=== PATIENT | female | born 1995 | race Caucasian/White ===

== ENCOUNTER 2021-09-03 18:39 | Inpatient (IN) | payer SELFPAY ==
--- NOTE | ~2021-09-03 | CT_ITS ---
EXAMINATION: CT abdomen pelvis w con DATE: 09/03/2021 22:16 INDICATION: Right lower quadrant abdominal pain. TECHNIQUE: Computed tomography (CT) of the abdomen and pelvis was performed with 100 mL Omnipaque 350 intravenous contrast. Automated exposure control and iterative reconstruction technique were employe d. The dose-length product was 181.56 mGy-cm. COMPARISON: None. FINDINGS: The visualized portions of the lung bases are clear without pneumonia or pleural effusion. The heart size is normal. No pericardial effusion. The liver and gallbladder are normal. There are mu ltiple low-attenuation lesions in the spleen measuring up to 5 mm, likely granulomatous disease. The pancreas, adrenal glands, and left kidney are normal. There is a striated nephrogram involving right kidney upper pole, consistent with pyelonephritis. There is diffuse bladder wall thickening, consiste nt with cystitis. There are no dilated loops of bowel. The appendix is normal. There are no pathologi christoph enlarged lymph nodes. There is physiologic fluid in the pelvis. The bones are unremarkable. IMPRESSION: 1. Right-sided pyelonephritis. 2. Cystitis. Reviewed, dictated and finalized at location A.
[2021-09-03 19:34] VITALS: BP 116/72; PULSE 112; RESP 18; TEMP 37.4; O2SAT 100
[2021-09-03 19:51] LABS: Basophils Percent Auto 0.1 % (0.2-1.2); Eosinophils Percent Auto 0.1 % (0-4.4); Hematocrit 37.7 % (37.0-47.0); Hemoglobin 12.5 g/dL (12.0-15.0); Immature Granulocyte Absolute 0.07 K/mm3 (0.00-0.031); Immature Granulocyte Percent A 0.5 % (0-0.5); Lymphocytes Absolute Auto 1.88 K/mm3 (0.9-3.2); Lymphocytes Percent Auto 13.1 % (18.3-44.2); Mean Corpuscular HGB Conc 33.2 g/dl (32-36); Mean Corpuscular Hemoglobin 31.3 pg (26-34); Mean Corpuscular Volume 94.5 fl (80-100); Mean Platelet Volume 10.9 fl (7.4-10.4); Monocytes Percent Auto 13.7 % (2.6-8.5); Neutrophils Absolute Auto 10.4 K/mm3 (1.3-6.7); Neutrophils Percent Auto 72.5 % (45.5-73.1); Platelet Count Result 200 k/mm3 (150-375); Red Blood Count 3.99 M/mm3 (4.2-5.4); Red Cell Distribution Width 12.5 % (11.5-14.5); White Blood Count 14.3 K/mm3 (4.5-10.0)
[2021-09-03 19:58] LABS: Alanine Aminotransferase 8 U/L (4-35); Albumin Level 4.2 g/dL (3.5-5.1); Alkaline Phosphatase 58 U/L (38-126); Anion Gap 9 mmol/L (8-16); Aspartate Amino Transferase 17 U/L (14-36); Bilirubin,Total 0.5 mg/dL (0.2-1.3); Blood Urea Nitrogen 8 mg/dL (7-17); Calcium 8.9 mg/dL (8.4-10.2); Carbon Dioxide 21 mmol/L (22-30); Chloride 106 mmol/L (98-107); Estimated CRCL calculation 98 ml/min; Estimated Glomerular Filt Rate > 60; Glucose 112 mg/dL (65-110); Lipase 83 U/L (23-300); Potassium 3.9 mmol/L (3.4-5.0); Sodium 136 mmol/L (137-145)
[2021-09-03 20:10] LABS: Add Urine Microscopic? YES; Appearance Urine Cloudy (Clear); Bilirubin Urine Negative (Negative); Blood Urine 2+ (Negative); Color Urine Yellow (Yellow); Glucose Urine UA Negative (Negative); Ketones Urine Negative (Negative); Leukocyte Esterase Ur 3+ LEU/UL (Negative); Nitrate Urine Negative (Negative); Protein Urine 2+ mg/dL (Negative); RBC Urine >75 /hpf (0-2); Specific Grav Ur 1.011 (1.001-1.035); Squamous Epithelial Cell Urine Few /hpf (Few); Urobilinogen Urine Negative mg/dL (<2.0); WBC Clumps Urine Present /HPF; WBC Urine >75 /hpf
--- NOTE | 2021-09-03 20:48 | ED.ABDPAIN ---
HPI - Abdominal Pain General Chief Complaint: Abdominal Pain Stated Complaint: RLQ pain Time Seen by Provider: 09/03/21 20:37 Source: RN notes reviewed History of Present Illness HPI narrative: Patient presents emergency department from urgent care for abdominal pain. Patient states she has been having right lower quadrant abdominal pain for the past 3 days states pain is progressively worsened described as sharp and stabbing states is been associate with fever up to 103 ?F at home she denies any nausea vomiting or diarrhea states she has been taking ibuprofen at home for the fever with last dose at 4 PM Related Data Allergies Allergy/AdvReac Type Severity Reaction Status Date / Time No Known Allergies Allergy Verified 09/03/21 21:23 Review of Systems Review of Systems: Gen.: Reports fever Eyes: Denies eye pain or visual change ENT: Denies congestion Respiratory: Denies shortness of breath or cough CV: Denies chest pain or palpitations GI: See HPI denies burning, urgency, frequency or hematuria Musculoskeletal: Denies back pain or muscle pain Neuro: Denies numbness, tingling, weakness or focal weakness Skin: Denies rash Except as documented, all other systems reviewed and negative [facility] Past Medical History Medical History (Updated 09/03/21 @ 23:55 by Kris Pena DO) Patient denies significant medical history Social History Social History (Updated 09/03/21 @ 20:49 by Kris Pena DO) Smoking status: Never smoker Exam Narrative: APPEARANCE: No acute distress, nontoxic, resting in bed HEENT: Normocephalic, atraumatic, OMM RESPIRATORY: No respiratory distress, clear to auscultation bilaterally with no rhonchi wheezing or rales CARDIOVASCULAR: RRR s murmur ABDOMINAL: Soft nondistended tender palpation right lower quadrant no tenderness right upper quadrant, left upper quadrant left lower quadrant no rebound or guarding MUSCULOSKELETAl: Moves all extremities. No clubbing, cyanosis or edema. NEURO: Awake and alert. Following commands, speech normal, no focal deficits SKIN:: Warm, dry. Normal Color PSYCHIATRIC: Normal affect/mood Course Course Emergency Course: Patient continues to have abdominal discomfort will admit at this time Dr. Hernandez presentation work-up agrees with admission Discussed with patient and family results of workup and diagnosis. Discussed need for admission. Patient and family understand and agree to current treatment plan Vital Signs Vital signs: Vital Signs Temperature 99.4 F 09/03/21 19:34 Pulse Rate 112 H 09/03/21 19:34 Respiratory Rate 18 09/03/21 19:34 Blood Pressure 116/72 09/03/21 19:34 Pulse Oximetry 100 09/03/21 19:34 Temperature 99.4 F 09/03/21 19:34 Pulse Rate 78 09/03/21 21:31 Respiratory Rate 16 09/03/21 21:31 Blood Pressure 116/70 09/03/21 21:31 Pulse Oximetry 99 09/03/21 21:31 MDM - Abdominal Pain Lab Data Result diagrams: 09/03/21 19:40 09/03/21 19:41 Labs: Lab Results 09/03/21 09/03/21 09/03/21 Range/Units 19:40 19:41 19:50 WBC 14.3 H (4.5-10.0) K/mm3 RBC 3.99 L (4.2-5.4) M/mm3 Hgb 12.5 (12.0-15.0) g/dL Hct 37.7 (37.0-47.0) % MCV 94.5 (80-100) fl MCH 31.3 (26-34) pg MCHC 33.2 (32-36) g/dl RDW 12.5 (11.5-14.5) % Plt Count 200 (150-375) k/mm3 MPV 10.9 H (7.4-10.4) fl Immature Gran % (Auto) 0.5 (0-0.5) % Neut % (Auto) 72.5 (45.5-73.1) % Lymph % (Auto) 13.1 L (18.3-44.2) % [place] % (Auto) 13.7 H (2.6-8.5) % Eos % (Auto) 0.1 (0-4.4) % Baso % (Auto) 0.1 L (0.2-1.2) % Lymph # (Auto) 1.88 (0.9-3.2) K/mm3 [place] # (Auto) 2.0 H (0.1-0.6) K/mm3 Eos # (Auto) 0.0 (0-0.3) K/mm3 Baso # (Auto) 0.0 (0.0-0.1) K/mm3 Abs Immat Gran (auto) 0.07 H (0.00-0.031) K/mm3 Absolute Neuts (auto) 10.4 H (1.3-6.7) K/mm3 Absolute Nucleated RBC 0.0 (0.0-0.012) K/mm3 Nucleated RBC % 0.0 (0.0-0
[2021-09-03 21:26] LABS: Lactic Acid Reflex 0.8 mmol/L (0.7-2.1)
[2021-09-03 21:31] VITALS: BP 116/70; PULSE 78; RESP 16; O2SAT 99
[2021-09-03] MEDS: SODIUM CHLORIDE 0.9% IV 1,000 ML 999 ML IV CONT ×2 (21:31→23:12)
[2021-09-04 00:10] VITALS: BP 114/76; PULSE 100; RESP 20; O2SAT 99
[2021-09-04] MEDS: MORPHINE SULFATE (*CRX) 2 MG/ML INJ IV PUSH (00:19)
[2021-09-04 00:30] VITALS: BP 115/70; PULSE 83; RESP 20; TEMP 36.7; O2SAT 100; BMI 20.6
--- NOTE | 2021-09-04 00:40 | PC.NURSE ---
This patient, Марина Peters, was admitted to 3 [facility] Surg Room 319-01 @ 0030 Patient/family oriented to hospital policies and general routines including ID bracelet, bed and alarms, visiting hours, pain management, procedures, bathroom and other care routines, personal items, smoking policy, room service/diet, and visiting hours. Information on how to activate the Rapid Response Team has been discussed. Patient/Family are encouraged to report perceived risks to care and to ask questions if they do not understand what they are told or what they should do.
[2021-09-04 00:55] VITALS: BMI 21.1
[2021-09-04] MEDS: SODIUM CHLORIDE 0.9% IV 1,000 ML 100 ML IV CONT ×3 (01:19→21:05)
[2021-09-04] MEDS: MORPHINE SULFATE (*CRX) 4 MG/ML INJ 2 MG IV PUSH (03:56)
--- NOTE | 2021-09-04 04:41 | PM.IMHP ---
H&P: HPI History of Present Illness Date/Time: 09/04/21 03:10 Chief Complaint: Abdominal pain and fever Narrative: Previously healthy 25-year-old female who presented to the ER from urgent care with right lower quadrant abdominal pain and fever. Patient reports her pain started approximately 3 days ago. The pain is in the right lower quadrant periumbilical region and will radiate to the right flank at times. The pain is a 6/10 currently and is been as bad as 10/10 with movement. When it 1st started the pain was achy in nature. However the last 24 hours she has developed occasional sharp stabbing pain. It is been accompanied by decreased appetite and a fever. Her fever has been ongoing for 24 hours and is been as high as 103.6?. She has had associated increased urinary urgency and frequency. She denies having any dysuria. She reports that when she does urinate she has only dribbling small amount. She denies any nausea or vomiting. She has had a mild headache over the last several hours. She denies having history of pyelonephritis but usually has a urinary tract infection once a year. She is sexually active but reports that she practices post coital voiding. She denies any chest pain, shortness breath, cough, congestion. 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 She went to urgent care initially and was tested for flu, COVID and strep which were all negative. She had been taking ibuprofen at home. She reported for the 1st 2 days ibuprofen seems to help with her pain. On final day the pain was so severe it did not seem to help. She persistently had a fever despite the ibuprofen. Review of Systems Review of Systems: 12 systems were reviewed with pertinent positives and negatives per HPI. Except as documented in the HPI, all other systems were reviewed and are negative. [facility] Past Medical History Medical History (Updated 09/04/21 @ 05:11 by Yarely Hernandez DO) Patient denies significant medical history Surgical History Surgical History (Updated 09/04/21 @ 05:04 by Yarely Hernandez DO) No significant past surgical history Family History Family History (Updated 09/04/21 @ 05:06 by Yarely Hernandez DO) Mother Patient's mother is in good health Father Patient's father is in good health Social History Social History (Updated 09/04/21 @ 05:07 by Yarely Hernandez DO) Social History: 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 She drinks alcohol about once a month but when she does drink she drinks to get drunk. She denies any illicit substance use or tobacco use. Smoking status: Never smoker Alcohol intake: current Substance use: never Spiritual care concerns: No Meds Home Medications and Allergies Home Medications Medication Instructions Recorded Confirmed Type No Home Medications 09/04/21 09/04/21 History Allergies Allergy/AdvReac Type Severity Reaction Status Date / Time No Known Allergies Allergy Verified 09/04/21 01:13 Vital Signs Vital Signs - 24 hr 09/03/21 19:34 09/03/21 21:31 09/04/21 00:10 Temperature 99.4 F Pulse Rate 112 H 78 100 Respiratory Rate 18 16 20 Blood Pressure 116/72 116/70 114/76 Pulse Oximetry 100 99 99 09/04/21 00:30 Temperature 98.0 F Pulse Rate 83 Respiratory Rate 20 Blood Pressure 115/70 Pulse Oximetry 100 Exam Narrative: PHYSICAL EXAM: WEIGHT 52.4 kg BMI 21.1 General: Mildly ill-appearing, well-developed well-nourished HEENT: Mucous membranes are tacky however oral pharyngeal erythema, no scleral icterus, pupils are equal reactive Respiratory: Clear to auscultation bilaterally, no increased work of breathing Cardiovascular: Regular rate, regular rhythm, no murmurs, 2+ bilateral radial pedal pulses Gastrointestinal: Soft, tender in the right periumbilical region, CVA tenderness to percussion, normoactive bowel sounds, nondistended Skin: Mild pallor, non jaundice Musculoskeletal: No clubbing, cyanosis or edema Neurolo
[2021-09-04] MEDS: HYDROcodone/acetaminophen (*CRX) 5-325 MG TABLET 1 TAB PO ×3 (05:49→21:01)
[2021-09-04 06:00] VITALS: BP 110/61; PULSE 88; RESP 20; TEMP 36.9; O2SAT 100
[2021-09-04 06:46] LABS: Basophils Percent Auto 0.1 % (0.2-1.2); Eosinophils Absolute Auto 0.1 K/mm3 (0-0.3); Eosinophils Percent Auto 0.6 % (0-4.4); Hematocrit 36.4 % (37.0-47.0); Hemoglobin 11.6 g/dL (12.0-15.0); Immature Granulocyte Absolute 0.04 K/mm3 (0.00-0.031); Immature Granulocyte Percent A 0.4 % (0-0.5); Lymphocytes Percent Auto 18.3 % (18.3-44.2); Mean Corpuscular HGB Conc 31.9 g/dl (32-36); Mean Corpuscular Hemoglobin 31.2 pg (26-34); Mean Corpuscular Volume 97.8 fl (80-100); Mean Platelet Volume 11.1 fl (7.4-10.4); Monocytes Absolute Auto 1.2 K/mm3 (0.1-0.6); Neutrophils Absolute Auto 6.7 K/mm3 (1.3-6.7); Neutrophils Percent Auto 68.6 % (45.5-73.1); Platelet Count Result 160 k/mm3 (150-375); Red Blood Count 3.72 M/mm3 (4.2-5.4); Red Cell Distribution Width 12.7 % (11.5-14.5); White Blood Count 9.8 K/mm3 (4.5-10.0)
[2021-09-04 06:52] LABS: Anion Gap 7 mmol/L (8-16); Blood Urea Nitrogen 5 mg/dL (7-17); Calcium 8.2 mg/dL (8.4-10.2); Carbon Dioxide 25 mmol/L (22-30); Chloride 110 mmol/L (98-107); Estimated CRCL calculation 115 ml/min; Estimated Glomerular Filt Rate > 60; Glucose 119 mg/dL (65-110); Potassium 3.4 mmol/L (3.4-5.0); Sodium 142 mmol/L (137-145)
[2021-09-04] MEDS: IBUPROFEN 600 MG TABLET PO ×2 (08:48→17:44)
--- NOTE | 2021-09-04 12:08 | PM.IMPN ---
Progress Note: A&P Assessment and Plan (1) Pyelonephritis of right kidney: Code(s): N12 - Tubulo-interstitial nephritis, not specified as acute or chronic Status: Acute Assessment and Plan: Presented with acute right flank pain fever. CT abdomen/pelvis showed right-sided pyelonephritis and cystitis Continue IV Ceftriaxone Urine cultures pending, await results and tailor antibiotics accordingly Supportive care. Analgesics and antiemetics available as needed (2) Sepsis: Qualifiers: Sepsis acute organ dysfunction status: without acute organ dysfunction Sepsis type: sepsis due to unspecified organism Qualified Code(s): A41.9 - Sepsis, unspecified organism Code(s): A41.9 - Sepsis, unspecified organism Status: Acute Assessment and Plan: Septic presentation fever, leukocytosis tachycardia. Source of infection is acute right pyelonephritis. Blood cultures pending Treatment as above Sepsis resolved. She is afebrile, leukocytosis and tachycardia have resolved Will discontinue IV fluids she has been adequately rehydrated and is tolerating p.o. intake Subjective Date/time seen: 09/04/21 12:08 Interval history: Date of service: 09/04/2021 Марина Peters is a previously healthy 25 year old female who is seen in follow-up for right-sided pyelonephritis. She is feeling a little bit better. She continues to endorse right flank pain that she rates as 5.5/10 with all movement and with deep breaths. She describes it as a sharp, stabbing type pain. She denies fever, chills, nausea vomiting, dizziness lightheadedness. She does have a poor appetite. She denies breakfast this morning. She dysuria hematuria, urgency or frequency. Denies diarrhea. She had a headache this morning has resolved. Denies shortness breath, cough, or chest pain. She has no additional concerns at this time. Review of Systems Review of Systems: All systems reviewed & are unremarkable except as noted in HPI and below Exam Narrative: Ms. Peters is a well-nourished, well-appearing 25-year-old female who is sitting cross legged in bed. She appears comfortable and is in NARD. Neuro: awake, alert and oriented x4, speech clear, no focal neuro deficits noted HEENMT: normocephalic, atraumatic, EOMI, sclerae anicteric, moist oral mucosa Neck: supple, no lymphadenopathy Respiratory: clear to auscultation bilaterally, nonlabored breathing Cardio: regular rate, regular rhythm with S1-S2 Abdomen: nondistended, normoactive bowel sounds, soft, nontender to palpation : no CVA tenderness, right flank equisitely tender to palpation, left flank nontender. Extremities: no edema, erythema, or tenderness to palpation, DP pulses 2+ bilaterally Skin: no rashes or lesions, warm and dry Psych: appropriate mood and affect, judgment and insight intact Objective Data Vital Signs Vital Signs: Vital Signs - 24 hr 09/03/21 19:34 09/03/21 21:31 09/04/21 00:10 Temperature 99.4 F Pulse Rate 112 H 78 100 Respiratory Rate 18 16 20 Blood Pressure 116/72 116/70 114/76 Pulse Oximetry 100 99 99 09/04/21 00:30 09/04/21 06:00 Temperature 98.0 F 98.5 F Pulse Rate 83 88 Respiratory Rate 20 20 Blood Pressure 115/70 110/61 Pulse Oximetry 100 100 Intake/Output Intake/Output: Intake & Output 09/01/21 09/02/21 09/03/21 09/04/21 23:59 23:59 23:59 23:59 Intake Total 1100 2490 Balance 1100 2490 Meds/Results Medications: Active Medications Generic Name Dose Route Start Last Admin Trade Name Freq PRN Reason Stop Dose Admin Hydrocodone Bitart/Acetaminophen 1 tab 09/04/21 05:12 09/04/21 11:45 Hydrocodone/Acetaminophen (*Crx) 5-325 Mg Tablet PO 1 tab Q6H PRN Administration Pain Rated 4-6 Ceftriaxone Sodium/Dextrose 1 gm in 50 mls @ 100 mls/hr 09/04/21 22:00 Rocephin 1 Gm/D5w 50 Ml IVPB Q24H JOSEPHINE Sodium Chloride 1,000 mls @ 100 mls/hr 09/03/21 23:55 09/04/21 11:44 Normal
[2021-09-04 14:00] VITALS: BP 104/52; PULSE 72; RESP 16; TEMP 36.4; O2SAT 100
[2021-09-04 20:30] VITALS: O2SAT 100
[2021-09-04 21:56] VITALS: BP 104/63; PULSE 82; RESP 20; TEMP 37.2; O2SAT 100
[2021-09-05] MEDS: HYDROcodone/acetaminophen (*CRX) 5-325 MG TABLET 1 TAB PO ×4 (02:51→20:44)
[2021-09-05 06:00] VITALS: BP 121/76; PULSE 97; RESP 20; TEMP 37.6; O2SAT 100
[2021-09-05] MEDS: MORPHINE SULFATE (*CRX) 4 MG/ML INJ 2 MG IV PUSH (06:17)
[2021-09-05 06:24] LABS: Hematocrit 34.2 % (37.0-47.0); Hemoglobin 11.1 g/dL (12.0-15.0); Mean Corpuscular HGB Conc 32.5 g/dl (32-36); Mean Corpuscular Hemoglobin 31.4 pg (26-34); Mean Corpuscular Volume 96.9 fl (80-100); Mean Platelet Volume 10.9 fl (7.4-10.4); Platelet Count Result 149 k/mm3 (150-375); Red Blood Count 3.53 M/mm3 (4.2-5.4); Red Cell Distribution Width 12.8 % (11.5-14.5); White Blood Count 9.5 K/mm3 (4.5-10.0)
[2021-09-05] MEDS: IBUPROFEN 600 MG TABLET PO ×2 (06:30→12:07)
[2021-09-05 06:49] LABS: Anion Gap 7 mmol/L (8-16); Blood Urea Nitrogen 2 mg/dL (7-17); Calcium 8.4 mg/dL (8.4-10.2); Carbon Dioxide 26 mmol/L (22-30); Chloride 105 mmol/L (98-107); Estimated CRCL calculation 115 ml/min; Estimated Glomerular Filt Rate > 60; Glucose 91 mg/dL (65-110); Potassium 3.8 mmol/L (3.4-5.0); Sodium 138 mmol/L (137-145)
--- NOTE | 2021-09-05 10:03 | PM.IMPN ---
Progress Note: A&P Assessment and Plan (1) Pyelonephritis of right kidney: Code(s): N12 - Tubulo-interstitial nephritis, not specified as acute or chronic Status: Acute Assessment and Plan: Presented with acute right flank pain and fever. CT abdomen/pelvis showed right-sided pyelonephritis and cystitis Continue IV Ceftriaxone Urine cultures with growth of >100k E coli. Susceptibility reports pending. Tailor antibiotics accordingly Supportive care. Analgesics and antiemetics available as needed (2) Sepsis: Qualifiers: Sepsis acute organ dysfunction status: without acute organ dysfunction Sepsis type: sepsis due to unspecified organism Qualified Code(s): A41.9 - Sepsis, unspecified organism Code(s): A41.9 - Sepsis, unspecified organism Status: Acute Assessment and Plan: Septic on presentation with fever, leukocytosis tachycardia. Source of infection is acute right pyelonephritis. Blood cultures pending; negative today Treatment as above Low-grade fever 99.7 this morning. Leukocytosis and tachycardia resolved Subjective Date/time seen: 09/05/21 10:03 Interval history: Date of service: 09/05/2021 Марина Peters is a previously healthy 25 year old female who is seen in follow-up for right-sided pyelonephritis. She is feeling about the same today. She is feeling a little bit better but is still having sharp pains in the right flank. This morning her pain was 5/10 but has improved to 2.5/10 after pain medication. She denies urinary symptoms. Denies vaginal discharge, pelvic pain. She endorsed chills this morning and had a fever. No nausea or vomiting. Still with poor appetite. No shortness breath, cough, or chest pain. No dizziness or lightheadedness. She has been able to get up and walk around to the bathroom without difficulty. Review of Systems Review of Systems: All systems reviewed & are unremarkable except as noted in HPI and below Exam Narrative: Ms. Peters is a well-nourished, well-appearing 25-year-old female who is sitting cross legged in bed. She appears comfortable and is in NARD. Neuro: awake, alert and oriented x4, speech clear, no focal neuro deficits noted HEENMT: normocephalic, atraumatic, EOMI, sclerae anicteric, moist oral mucosa Neck: supple, no lymphadenopathy Respiratory: clear to auscultation bilaterally, nonlabored breathing Cardio: regular rate, regular rhythm with S1-S2 Abdomen: nondistended, normoactive bowel sounds, soft, nontender to palpation : no CVA tenderness, right flank tender to palpation, left flank nontender. Extremities: no edema, erythema, or tenderness to palpation, DP pulses 2+ bilaterally Skin: no rashes or lesions, warm and dry Psych: appropriate mood and affect, judgment and insight intact Objective Data Vital Signs Vital Signs: Vital Signs - 24 hr 09/04/21 14:00 09/04/21 20:30 09/04/21 21:56 Temperature 97.6 F 98.9 F Pulse Rate 72 82 Respiratory Rate 16 20 Blood Pressure 104/52 L 104/63 Pulse Oximetry 100 100 100 09/05/21 06:00 Temperature 99.7 F H Pulse Rate 97 Respiratory Rate 20 Blood Pressure 121/76 Pulse Oximetry 100 Intake/Output Intake/Output: Intake & Output 09/02/21 09/03/21 09/04/21 09/05/21 23:59 23:59 23:59 23:59 Intake Total 1100 4220 300 Balance 1100 4220 300 Meds/Results Medications: Active Medications Generic Name Dose Route Start Last Admin Trade Name Freq PRN Reason Stop Dose Admin Hydrocodone Bitart/Acetaminophen 1 tab 09/04/21 05:12 09/05/21 08:31 Hydrocodone/Acetaminophen (*Crx) 5-325 Mg Tablet PO 1 tab Q6H PRN Administration Pain Rated 4-6 Ceftriaxone Sodium/Dextrose 1 gm in 50 mls @ 100 mls/hr 09/04/21 22:00 09/04/21 23:24 Rocephin 1 Gm/D5w 50 Ml IVPB 100 mls/hr Q24H JOSEPHINE Infusion Ibuprofen 600 mg 09/04/21 05:12 09/05/21 06:30 Ibuprofen 600 Mg Tablet PO 600 mg Q6H PRN Administration Pain R
[2021-09-05 14:00] VITALS: BP 109/60; PULSE 94; RESP 14; TEMP 37.2; O2SAT 98
[2021-09-05 22:00] VITALS: BP 113/70; PULSE 84; RESP 20; TEMP 37.1; O2SAT 98
[2021-09-06] MEDS: HYDROcodone/acetaminophen (*CRX) 5-325 MG TABLET 1 TAB PO ×3 (00:49→11:50)
[2021-09-06] MEDS: IBUPROFEN 600 MG TABLET PO (02:46)
[2021-09-06 06:00] VITALS: BP 100/60; PULSE 66; RESP 20; TEMP 36.7; O2SAT 99
[2021-09-06 06:44] LABS: Hematocrit 33.9 % (37.0-47.0); Hemoglobin 10.9 g/dL (12.0-15.0); Mean Corpuscular HGB Conc 32.2 g/dl (32-36); Mean Corpuscular Hemoglobin 30.5 pg (26-34); Mean Platelet Volume 10.7 fl (7.4-10.4); Platelet Count Result 199 k/mm3 (150-375); Red Blood Count 3.57 M/mm3 (4.2-5.4); Red Cell Distribution Width 12.6 % (11.5-14.5); White Blood Count 7.8 K/mm3 (4.5-10.0)
[2021-09-06 07:01] LABS: Anion Gap 7 mmol/L (8-16); Blood Urea Nitrogen 5 mg/dL (7-17); Calcium 8.7 mg/dL (8.4-10.2); Carbon Dioxide 29 mmol/L (22-30); Chloride 104 mmol/L (98-107); Estimated CRCL calculation 115 ml/min; Estimated Glomerular Filt Rate > 60; Glucose 85 mg/dL (65-110); Potassium 3.7 mmol/L (3.4-5.0); Sodium 140 mmol/L (137-145)
--- NOTE | 2021-09-06 14:48 | PM.DS ---
DS: Admitting Diagnosis Discharge Date 09/06/2021 Admitting Diagnosis Pyelonephritis DS: Discharge Diagnosis Discharge Diagnosis (1) Pyelonephritis of right kidney: Code(s): N12 - Tubulo-interstitial nephritis, not specified as acute or chronic Status: Acute Assessment and Plan: Presented with acute right flank pain and fever. CT abdomen/pelvis showed right-sided pyelonephritis and cystitis Received IV ceftriaxone during hospitalization Urine cultures with growth of >100k E coli. Supportive care provided including analgesics and antiemetics She will continue p.o. Augmentin for 10 days as an outpatient. Probiotic prescribed while taking antibiotics (2) Sepsis: Qualifiers: Sepsis acute organ dysfunction status: without acute organ dysfunction Sepsis type: sepsis due to unspecified organism Qualified Code(s): A41.9 - Sepsis, unspecified organism Code(s): A41.9 - Sepsis, unspecified organism Status: Acute Assessment and Plan: Resolved. Septic on presentation with fever, leukocytosis tachycardia. Source of infection was acute right pyelonephritis. Leukocytosis and tachycardia resolved. She remained afebrile >24 hours DS: Summary Hospital Course Hospital Course: Date of admission: 09/03/2021 Date of discharge: 09/06/2021 Марина Peters is a healthy 25-year-old female who presented to the emergency department on 09/03/2021 with complaints of right-sided abdominal pain ongoing for 3 days as well as fever up to 103.0?. On presentation to the emergency department, she was tachycardic with additional vital signs stable, WBC 14.3, additional CBC and BMP unremarkable, UA grossly abnormal, and CT abdomen/pelvis showed right-sided pyelonephritis and cystitis. She was admitted to the hospitalist service for further evaluation and management. Please see above for further details. She was treated with IV antibiotics and had symptomatic improvement. She was feeling much better and her pain had improved. She requested discharge home. Given her overall improvement, she was determined to no longer require inpatient care and was felt to be stable for discharge. We discussed worrisome signs and symptoms for which to return and she was educated on her medications. She was discharged in hemodynamically stable condition on 09/06/2021. Status at Discharge Functional status at discharge: independent ambulation Overall status at discharge: patient is back to baseline Time Spent with Patient Time attestation: Total time spent providing and/or coordinating discharge services: 45 minutes Time spent: Greater than 30 minutes Exam Narrative: Ms. Peters is a well-nourished, well-appearing 25-year-old female who is sitting up in bed. She appears comfortable and is in NARD. Neuro: awake, alert and oriented x4, speech clear, no focal neuro deficits noted HEENMT: normocephalic, atraumatic, EOMI, sclerae anicteric, moist oral mucosa Neck: supple, no lymphadenopathy Respiratory: clear to auscultation bilaterally, nonlabored breathing Cardio: regular rate, regular rhythm with S1-S2 Abdomen: nondistended, normoactive bowel sounds, soft, nontender to palpation : no CVA tenderness, right flank slightly tender to palpation, left flank nontender. Extremities: no edema, erythema, or tenderness to palpation, DP pulses 2+ bilaterally Skin: no rashes or lesions, warm and dry Psych: appropriate mood and affect, judgment and insight intact DS: Data Data Completed and Pending Labs on day of discharge: Labs from last 24 hours 09/06/21 09/06/21 06:14 06:14 WBC 7.8 RBC 3.57 L Hgb 10.9 L Hct 33.9 L MCV 95.0 MCH 30.5 MCHC 32.2 RDW 12.6 Plt Count 199 MPV 10.7 H Sodium 140 Potassium 3.7 Chloride 104 Carbon Dioxide 29 Anion Gap 7 L BUN 5 L Creatinine 0.50 L Estim Creat Clear Calc 115 Estimated GFR > 60 Glucose 85 Calcium 8.7 Preliminary
[2021-09-06 15:07] VITALS: BP 103/55; PULSE 70; RESP 20; TEMP 37.1; O2SAT 98
== END 2021-09-06 16:00 | disposition home or self-care (01) | DRG 720 ==
LOC: ANHED 23:55 → ANH3MEDSUR 09-04 00:15
PROVIDERS: Physician Assistant; Admitting Provider Internal Medicine; Emergency Provider Emergency Medicine; Visit Provider Internal Medicine
DX: A41.9 Sepsis, unspecified organism (principal); N10 Acute pyelonephritis; Z28.21 Immunization not carried out because of patient refusal
CPT/HCPCS: 36415; 74177; 80048; 80053; 81001; 81025; 83605; 83690; 85025; 85027; 87040; 87077; 87086; 87088; 87186; 96361; 96365; 96367; 96374; 96376; 99285; A9270; G0378; G0379; J0131; J0696; J2270; J7030; Q9967

== ENCOUNTER → 2021-09-18 12:53 | Emergency (ER) | payer SELFPAY ==
--- NOTE | ~2021-09-18 | CT_ITS ---
EXAMINATION: CT abdomen pelvis w con DATE: 09/18/2021 14:09 INDICATION: Right lower quadrant abdominal pain. TECHNIQUE: Computed tomography (CT) of the abdomen and pelvis was performed with 100 mL Omnipaque 350 intravenous contrast. Automated exposure control and iterative reconstruction technique were employe d. The dose-length product was 191.23 mGy-cm. COMPARISON: CT abdomen and pelvis 09/03/2021 FINDINGS: The visualized portions of the lung bases are clear without pneumonia or pleural effusion. The heart size is normal. No pericardial effusion. The liver and gallbladder are normal. Again seen a re multiple low-attenuation lesions in the spleen measuring up to 6 mm, likely granulomatous disease. The pancreas, adrenal glands, and left kidney are normal. There is a striated nephrogram involving r ight kidney upper pole with improvement, consistent with pyelonephritis. There are no dilated loops o f bowel. The appendix is normal. There are no pathologically enlarged lymph nodes. There is physiolog ic fluid in the pelvis. There is mild lumbar spondylosis. IMPRESSION: 1. Pyelonephritis involving right kidney upper pole with interval improvement. Reviewed, dictated and finalized at location A.
--- NOTE | ~2021-09-18 | US_ITS ---
EXAMINATION: US pelvic complete w TV DATE: 09/18/2021 15:01 INDICATION: Pelvic pain. Low abdominal pain. TECHNIQUE: Multiple transabdominal and transvaginal sonographic images of the pelvis were obtained. COMPARISON: CT abdomen and pelvis 09/18/2021 FINDINGS: TRANSABDOMINAL ULTRASOUND: The uterus measures 8.0 x 4.2 x 5.8 cm. There is trace free fluid in the pelvis. TRANSVAGINAL ULTRASOUND: The endometrial complex measures 16 mm in thickness. The right ovary measures 2.7 x 1.4 x 1.7 cm. The left ovary measures 3.1 x 2.7 x 2.7 cm. There is a 2.1 cm hemorrhagic cyst in left ovary. There is n ormal vascular flow in the ovaries. IMPRESSION: 1. 2.1 cm hemorrhagic cyst in left ovary. Reviewed, dictated and finalized at location A.
[2021-09-18 13:01] VITALS: BP 129/70; PULSE 86; RESP 16; TEMP 37; O2SAT 99
--- NOTE | 2021-09-18 13:16 | ED.ABDPAIN ---
HPI - Abdominal Pain General Chief Complaint: Abdominal Pain Stated Complaint: right sided abdominal pain Time Seen by Provider: 09/18/21 12:58 Source: patient Mode of arrival: ambulatory Limitations: no limitations History of Present Illness HPI narrative: This is a 25 year old female that presents to the ER for right sided abdominal pain present over the last couple of weeks. Reports the pain is sharp in nature and intermittent. The pain is now also in her left lower quadrant which prompted her to be seen. She was recently admitted to the hospital for pyelonephritis on the right. She recently finished her p.o. antibiotics without relief in her symptoms. Denies fever, vomiting, dysuria, hematuria. Related Data Allergies Allergy/AdvReac Type Severity Reaction Status Date / Time No Known Allergies Allergy Verified 09/18/21 13:22 Review of Systems Review of Systems: CONSTITUTIONAL: Denies fever GASTROINTESTINAL: Reports abdominal pain. Denies nausea, vomiting, or diarrhea. GENITOURINARY: Denies dysuria or hematuria. All systems reviewed & are unremarkable except as noted in HPI and below PMFSH Past Medical History Medical History (Updated 09/18/21 @ 15:39 by Feli Hess PA-C) Patient denies significant medical history Surgical History Surgical History (Updated 09/04/21 @ 05:04 by Yarely Hernandez DO) No significant past surgical history Family History Family History (Updated 09/04/21 @ 05:06 by Yarely Hernandez DO) Mother Patient's mother is in good health Father Patient's father is in good health Social History Social History (Updated 09/04/21 @ 05:07 by Yarely Hernandez DO) Social History: 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 She drinks alcohol about once a month but when she does drink she drinks to get drunk. She denies any illicit substance use or tobacco use. Smoking status: Never smoker Alcohol intake: current Substance use: never Spiritual care concerns: No Exam Narrative: GENERAL: Well-appearing, well-nourished, and in no acute distress. HEAD: Normocephalic, atraumatic. EYES: EOMI. CHEST: Clear to auscultation. No respiratory distress. No wheezes rales or rhonchi HEART: Regular rate and rhythm. No murmur heard. Normal peripheral pulses. ABDOMEN: Soft, nondistended, normal active bowel sounds. Tender to palpation throughout the lower abdomen, without guarding. No CVA tenderness EXTREMITIES: Normal range of motion. No edema. SKIN: Warm, dry, no rash. NEURO: No focal deficits. Alert and oriented x3. PSYCH: Normal mood and affect Course Vital Signs Vital signs: Vital Signs Temperature 98.6 F 09/18/21 13:01 Pulse Rate 86 09/18/21 13:01 Respiratory Rate 16 09/18/21 13:01 Blood Pressure 129/70 09/18/21 13:01 Pulse Oximetry 99 09/18/21 13:01 Temperature 98.6 F 09/18/21 13:01 Pulse Rate 103 H 09/18/21 13:17 Respiratory Rate 18 09/18/21 13:17 Blood Pressure 114/76 09/18/21 13:17 Pulse Oximetry 100 09/18/21 13:17 MDM - Abdominal Pain MDM Narrative Medical decision making narrative: Patient presents to the emergency department for continued right lower quadrant abdominal pain. Was recently admitted to the hospital for right-sided pyelonephritis. She is afebrile and nontoxic-appearing. Her vitals are stable. CBC and metabolic panel without concerning findings. Lipase is normal. UA does look normal today as well. Bedside test is negative. CT scan of the abdomen and pelvis does show continued pyelonephritis in the right kidney with improvement. Pelvic ultrasound shows a 2.1 cm hemorrhagic cyst in the left ovary. Normal vascular flow to the ovaries. With patient's continued pain will extend oral antibiotics and change to a different antibiotic with a better M.I.C. 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 Patient is stable and felt appropriate for fu
[2021-09-18 13:17] VITALS: BP 114/76; PULSE 103; RESP 18; O2SAT 100
[2021-09-18 13:40] LABS: Add Urine Microscopic? NO; Appearance Urine Clear (Clear); Bilirubin Urine Negative (Negative); Blood Urine Negative (Negative); Color Urine Yellow (Yellow); Glucose Urine UA Negative (Negative); Ketones Urine Negative (Negative); Leukocyte Esterase Ur Negative LEU/UL (Negative); Nitrate Urine Negative (Negative); Protein Urine Negative (Negative); Specific Grav Ur 1.015 (1.001-1.035); Urobilinogen Urine Negative mg/dL (<2.0)
[2021-09-18 13:41] LABS: Basophils Percent Auto 0.4 % (0.2-1.2); Eosinophils Absolute Auto 0.1 K/mm3 (0-0.3); Eosinophils Percent Auto 1.6 % (0-4.4); Hemoglobin 13.1 g/dL (12.0-15.0); Immature Granulocyte Absolute 0.02 K/mm3 (0.00-0.031); Immature Granulocyte Percent A 0.3 % (0-0.5); Lymphocytes Absolute Auto 2.08 K/mm3 (0.9-3.2); Lymphocytes Percent Auto 27.6 % (18.3-44.2); Mean Corpuscular HGB Conc 32.8 g/dl (32-36); Mean Corpuscular Volume 94.8 fl (80-100); Mean Platelet Volume 10.9 fl (7.4-10.4); Monocytes Absolute Auto 0.5 K/mm3 (0.1-0.6); Monocytes Percent Auto 6.1 % (2.6-8.5); Neutrophils Absolute Auto 4.8 K/mm3 (1.3-6.7); Platelet Count Result 239 k/mm3 (150-375); Red Blood Count 4.22 M/mm3 (4.2-5.4); Red Cell Distribution Width 12.6 % (11.5-14.5); White Blood Count 7.5 K/mm3 (4.5-10.0)
[2021-09-18] MEDS: ONDANSETRON INJ 4 MG/2 ML VIAL IV PUSH (13:41)
[2021-09-18] MEDS: MORPHINE SULFATE (*CRX) 4 MG/ML INJ IV PUSH (13:41)
[2021-09-18 13:49] LABS: Alanine Aminotransferase 9 U/L (4-35); Albumin Level 4.5 g/dL (3.5-5.1); Alkaline Phosphatase 68 U/L (38-126); Anion Gap 9 mmol/L (8-16); Aspartate Amino Transferase 23 U/L (14-36); Bilirubin,Total 0.6 mg/dL (0.2-1.3); Blood Urea Nitrogen 10 mg/dL (7-17); Calcium 9.5 mg/dL (8.4-10.2); Carbon Dioxide 25 mmol/L (22-30); Chloride 105 mmol/L (98-107); Estimated CRCL calculation 94 ml/min; Estimated Glomerular Filt Rate > 60; Glucose 90 mg/dL (65-110); Lipase 105 U/L (23-300); Potassium 3.9 mmol/L (3.4-5.0); Sodium 139 mmol/L (137-145)
--- NOTE | 2021-09-18 14:37 | PC.NURSE ---
Pt off floor for US
[2021-09-18 16:40] VITALS: BP 114/76; PULSE 85; RESP 18; TEMP 37.1; O2SAT 98
== END | disposition home or self-care (01) ==
PROVIDERS: Physician Assistant; Emergency Provider Family Medicine
DX: N12 Tubulo-interstitial nephritis, not specified as acute or chronic (principal); N83.202 Unspecified ovarian cyst, left side
CPT/HCPCS: 36415; 74177; 76830; 76856; 80053; 81003; 81025; 83690; 85025; 96374; 96375; 99284; J0131; J2270; J2405; Q9967

== ENCOUNTER 2022-04-02 15:45 | Emergency (ER) | payer OTHER, SELFPAY ==
--- NOTE | ~2022-04-02 | XR_ITS ---
XR foot LT min 3V DATE: 04/02/2022 16:08 INDICATION: Left fifth toe stubbed TECHNIQUE: 4 views COMPARISON: None FINDINGS: No fracture, dislocation, periosteal reaction or bone destruction. IMPRESSION: Negative Reviewed, dictated and finalized at location B. IMPRESSION: Negative
[2022-04-02 15:56] VITALS: BP 100/73; PULSE 72; RESP 16; TEMP 36.7; O2SAT 100
--- NOTE | 2022-04-02 15:59 | ED.LOWEXIN ---
HPI - Extremity Injury (Lower) General Chief Complaint: Extremity Injury, Lower Stated Complaint: work injury Time Seen by Provider: 04/02/22 16:10 Source: patient and RN notes reviewed Mode of arrival: ambulatory Limitations: no limitations History of Present Illness HPI Narrative: 26 old female presents concern for pain to the fifth digit of her left foot. Reports at work today she stubbed the toe on a crib. Reports pain, swelling. Reports worsening pain with walking. She denies intervention. She denies open skin, lacerations, abrasions. MD complaint: foot injury Related Data Allergies Allergy/AdvReac Type Severity Reaction Status Date / Time No Known Allergies Allergy Verified 09/18/21 13:22 Review of Systems Review of Systems: CONSTITUTIONAL: Denies malaise, chills, sweats, or fever. SKIN: Denies rash or itching, open skin, laceration, abrasion, redness, warmth MUSCULOSKELETAL: Reports pain and swelling in the fifth digit of left foot NEUROLOGIC: Denies numbness, weakness All systems reviewed & are unremarkable except as noted in HPI and below PMFSH Past Medical History Medical History (Updated 04/02/22 @ 16:29 by Emma Dunlap NP) Patient denies significant medical history Surgical History Surgical History (Updated 09/04/21 @ 05:04 by Yarely Hernandez DO) No significant past surgical history Family History Family History (Updated 09/04/21 @ 05:06 by Yarely Hernandez DO) Mother Patient's mother is in good health Father Patient's father is in good health Social History Social History (Updated 09/04/21 @ 05:07 by Yarely Hernandez DO) Social History: 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 She drinks alcohol about once a month but when she does drink she drinks to get drunk. She denies any illicit substance use or tobacco use. Smoking status: Never smoker Alcohol intake: current Substance use: never Spiritual care concerns: No Comments At time of signature, agree with nursing past medical, surgical, social and family history. There is no relevant family history pertinent to the presenting complaint Exam Narrative: GENERAL: Well-appearing, well-nourished, and in no acute distress. HEAD: Normocephalic, atraumatic. EYES: PERRLA, conjunctivae clear NECK: Supple. CHEST: Speaks in full sentences. No respiratory distress. HEART: Regular rate and rhythm. Normal and equal peripheral pulses. EXTREMITIES: Foot and all digits have normal strength and sensation, grossly normal range of motion. Mild fifth digit edema and erythema, no ecchymosis. 5/5 strength with digit flexion and extension. Normal sensation with sensitivity to light touch and pain. No point tenderness. No open wounds, no skin tenting, no devitalized tissue or atrophy, no trophic changes, no obvious deformity, alignment normal, nearby joints and structures intact. Distal pulses palpable and equal bilaterally, skin warm, dry, pink. Capillary refill less than 3 seconds. SKIN: Warm, dry, no rash. NEURO: Alert and oriented x3. PSYCH: Normal mood and affect Course Course Emergency Course: Patient is aware of diagnosis, understands and agrees to treatment plan. Anticipatory guidance given. Patient agrees to follow-up as directed and is aware of reasons to seek care at the emergency department. Portions of this record may have been created with voice recognition software Level of Care: Express Care Visit Vital Signs Vital signs: Reviewed. MDM - Extremity Injury (Lower) MDM Narrative Medical decision making narrative: Patients injury and pain is consistent with musculoskeletal etiology. No signs of neurological or vascular compromise on exam. Compartments and tissues are soft without signs of compartment syndrome. Pain is felt appropriate for further evaluation on an outpatient basis. Imaging Data My impression: Images reviewed, interpreted by radiologist, agree, see report. Radiologist's impression: XR fo
== END 2022-04-02 16:34 | disposition home or self-care (01) ==
PROVIDERS: Emergency Provider Nurse Practitioner
DX: S93.505A Unspecified sprain of left lesser toe(s), initial encounter (principal); W22.8XXA Striking against or struck by other objects, initial encounter; Y99.0 Civilian activity done for income or pay
CPT/HCPCS: 73630; 99213; G0463